=== PATIENT | female | born 1955 | race Caucasian/White ===

== ENCOUNTER 2020-11-16 12:53 | Observation (INO) | payer MEDICARE, OTHER ==
[~2020-11-16] VITALS: Ht 170.2 cm; Wt 77.1 kg
[~2020-11-16 12:53] MED LIST: ASPIR 8181 MG PO; HYDROCHLOROTHIA25 MG PO; LISINOPRIL10 MG PO; LOVENOX30 MG/0.3 SQ; NORCO 10-325 T1 EACH PO; VITAMIN D2000 UNI1 PO; ZOCOR40 MG PO
[2020-11-16 14:03] LABS: HEMOGLOBIN 14.4 gm/dl (12.3-15.3); RED BLOOD COUNT 4.56 M/UL (4.00-5.10)
[2020-11-16 14:22] LABS: BUN/CREATININE RATIO 12 (0-10)
[2020-11-17 04:54] LABS: BUN/CREATININE RATIO 11 (0-10)
[2020-11-17 05:26] LABS: HEMOGLOBIN 12.9 gm/dl (12.3-15.3); RED BLOOD COUNT 4.14 M/UL (4.00-5.10); WHITE BLOOD COUNT 6.1 K/UL (4.5-11.0)
[2020-11-17] MEDS ORDERED: FLAGYL500 MG PO (12:10)
[2020-11-17] MEDS ORDERED: LEVOFLOXACIN500 MG PO (12:10)
== END 2020-11-17 15:16 | disposition home or self-care (01) ==
LOC: ER1 12:53 → MED SURG 4 16:57 → CDU 16:57 → MED SURG 4 18:21
PROVIDERS: Physician Assistant; Physician Assistant Medical; ADMIT Internal Medicine Infectious Disease
DX: R10.30 Lower abdominal pain, unspecified (principal); R10.13 Epigastric pain; E87.6 Hypokalemia; I10 Essential (primary) hypertension; E78.00 Pure hypercholesterolemia, unspecified; Z79.82 Long term (current) use of aspirin; Z95.5 Presence of coronary angioplasty implant and graft; Z90.49 Acquired absence of other specified parts of digestive tract; Z20.822 Contact with and (suspected) exposure to COVID-19; Z79.899 Other long term (current) drug therapy
CPT/HCPCS: 74250; 80048; 80053; 81001; 83605; 83690; 83735; 85025; 85027; 96365; 96375; 99285; G0378; J0295; J3480; J7120; J7121; Q9963; Q9967; U0002